=== PATIENT | male | born 1970 | race Caucasian/White ===

== ENCOUNTER 2024-02-10 20:12 | Emergency (ER) | payer BC ==
[~2024-02-10] VITALS: Ht 177.8 cm; Wt 95.5 kg
[~2024-02-10 20:12] MED LIST: CLARITIN 1010 MG/TAB PO; FLOMAX 0.40.4 MG/CAP PO; LIPITOR 10MG10 MG PO
[2024-02-10 20:34] VITALS: TEMP 98.4
[2024-02-10] MEDS ORDERED: CEPHALEXIN500 M1 PO (21:26)
[2024-02-10] MEDS ORDERED: Cephalexin 500 MG CAP PO ONE (21:30)
[2024-02-10 21:36] VITALS: BP 124/86; PULSE 82
== END 2024-02-10 21:42 | disposition home or self-care (01) ==
LOC: COL.ER 20:12
DX: L03.115 Cellulitis of right lower limb (principal)